=== PATIENT | female | born 1950 | race Caucasian/White ===

== ENCOUNTER 2019-10-14 11:07 | Outpatient (CLI) | payer MEDICARE, SELFPAY ==
[2019-10-14 11:35] LABS: Basophils Absolute Auto 0.02 K/mm3 (0.00-0.10); Basophils Percent Auto 0.4 % (0.0-1.0); Eosinophils Absolute Auto 0.28 K/mm3 (0.02-0.50); Eosinophils Percent Auto 5.1 % (1.0-6.0); Hematocrit 43.9 % (35.0-42.0); Hemoglobin 14.3 g/dL (11.7-13.8); Immature Granulocyte Absolute 0.01 K/mm3 (0.00-0.00); Immature Granulocyte Percent A 0.2 % (0.0-0.0); Lymphocytes Absolute Auto 2.18 K/mm3 (1.10-4.50); Lymphocytes Percent Auto 39.8 % (18.0-42.0); Mean Corpuscular HGB Conc 32.6 g/dL (32.0-36.0); Mean Corpuscular Hemoglobin 29.8 pg (27.0-31.0); Mean Corpuscular Volume 91.5 fL (78.0-102.0); Mean Platelet Volume 9.7 fl (9.2-11.8); Monocytes Absolute Auto 0.33 K/mm3 (0.10-0.90); Neutrophils Absolute Auto 2.7 K/mm3 (1.7-7.2); Neutrophils Percent Auto 48.5 % (50.0-70.0); Platelet Count Result 179 K/mm3 (150-420); Red Cell Distribution Width 13.5 % (11.6-14.4); White Blood Count 5.5 K/mm3 (4.8-10.8)
[2019-10-14 11:44] LABS: Hemoglobin A1C 5.7 % (<5.7)
[2019-10-14 12:23] LABS: Alanine Aminotransferase 11 U/L (14-59); Albumin Level 3.8 g/dL (3.4-5.0); Alkaline Phosphatase 52 U/L (46-116); Anion Gap 11.1 mmol/L (7-16); Aspartate Amino Transferase 10 U/L (15-37); Bilirubin,Total 0.3 mg/dL (0.00-1.00); Blood Urea Nitrogen 14 mg/dL (7-18); Calcium 8.7 mg/dL (8.5-10.1); Carbon Dioxide 31 mmol/L (21-32); Chloride 107 mmol/L (98-108); Cholesterol 206 mg/dL (0-200); Estimated Glomerular Filt Rate > 60; Free T4 Free Thyroxine 0.91 ng/dL (0.76-1.46); Glucose 104 mg/dL (70-99); HDL Direct 60 mg/dL (40-60); LDL Cholesterol Calculated 130 mg/dL (<130); Osmolality Calculated 300 mOsm/kg (285-295); Potassium 4.1 mmol/L (3.5-5.1); Sodium 145 mmol/L (136-145); Thyroid Stimulating Hormone 1.93 uIU/mL (0.36-3.74); Total Protein 6.6 g/dL (6.4-8.2); Triglycerides 79 mg/dL (0-150)
[2019-10-17 11:55] LABS: Vitamin D 25 Hydroxy 31 ng/mL (30-100)
== END 2019-10-14 11:08 | disposition home or self-care (01) ==
PROVIDERS: Visit Provider Family Medicine
DX: R53.83 Other fatigue (principal); I10 Essential (primary) hypertension; E11.9 Type 2 diabetes mellitus without complications; E78.2 Mixed hyperlipidemia; E55.9 Vitamin D deficiency, unspecified
CPT/HCPCS: 36415; 80053; 80061; 82306; 83036; 84439; 84443; 85025

== ENCOUNTER 2020-07-04 12:27 | Outpatient (CLI) | payer MEDICARE, SELFPAY ==
--- NOTE | ~2020-07-04 | DEXA_ITS ---
BMD(1) Young-Adult(2) Age-Matched(3) Region (g/cm2) T-score Z-score WHO Classification L1 1.069 -0.6 1.0 Normal L2 1.069 -1.2 0.4 Osteopenia L3 1.221 0.0 1.6 Normal L4 1.052 -1.3 0.3 Osteopenia L1-L4 1.100 -0.8 0.8 Normal Trend: L1-L4 Change vs Change vs Measured Age BMD(1) Baseline Previous Date (years) (g/cm2) (%) (%) 07/04/2020 [age] 1.100 baseline - 1 - Statistically 68% of repeat scans fall within 1SD (+- 0.010 g/cm2 for AP Spine L1-L4) 2 - [place] (Combined NHANES (ages 20-30) / [employer] (ages 20-40)) AP Spine Reference Population (v112) 3 - Matched for Age, Weight (females 25-100 kg), Ethnic 11 - World Health Organization - Definition of Osteoporosis and Osteopenia for Women: Normal = T-score at or above -1.0 SD; Osteopenia = T-score between -1.0 and -2.5 SD; Osteoporosis = T-score at or below -2.5 SD; (WHO definitions only apply when a young healthy Women reference database is used to determine T-scores.) Printed: 07/04/2020 1:07:17 PM (13.60)76:3.00:50.00:12.0 0.00:10.14 0.60x1.05 21.1:%Fat=40.5% 0.00:0.00 0.00:0.00 Filename: [id number].[email or web address] Scan Mode: Standard;OneScan 37.0 [employer] Systems [id number] BMD(1) Young-Adult(2,7) Age-Matched(3) Region (g/cm2) T-score Z-score WHO Classification Neck Left 0.770 -1.9 -0.3 Osteopenia Right 0.702 -2.4 -0.8 Osteopenia Mean 0.736 -2.2 -0.6 Osteopenia Difference 0.068 0.5 0.5 - Total Left 0.889 -0.9 0.4 Normal Right 0.798 -1.7 -0.3 Osteopenia Mean 0.844 -1.3 0.0 Osteopenia Difference 0.091 0.7 0.7 - Hip [place] Length Comparison (mm) (Right = 96.2 mm) (Mean = 102.1 mm) (Left = 97.3 mm) Trend: Total Mean Change vs Change vs Measured Age BMD(1) Baseline Previous Date (years) (g/cm2) (%) (%) 07/04/2020 70.3 0.844 baseline - 1 - Statistically 68% of repeat scans fall within 1SD (+- 0.010 g/cm2 for DualFemur Total) 2 - [place] (Combined NHANES (ages 20-30) / [employer] (ages 20-40)) Femur Reference Population (v112) 3 - Matched for Age, Weight (females 25-100 kg), Ethnic 7 - DualFemur Total T-score difference is 0.7. Asymmetry is Mild. 11 - World Health Organization - Definition of Osteoporosis and Osteopenia for Women: Normal = T-score at or above -1.0 SD; Osteopenia = T-score between -1.0 and -2.5 SD; Osteoporosis = T-score at or below -2.5 SD; (WHO definitions only apply when a young healthy Women reference database is used to determine T-scores.) Printed: 07/04/2020 1:07:17 PM (13.60); Filename: 5gfggqafq.dfx; Right Femur; 17.3:%Fat=37.0%; Neck Angle (deg)= 54; Scan Mode: Standard 37.0 uGy; Left Femur; 16.7:%Fat=42.3%; Neck Angle (deg)= 68; Scan Mode: Standard 37.0 uGy [email or web address] [id number] Dear Geneva Damian, Your patient Romana Bush completed a BMD test on 07/04/2020 using the [email or web address] DXA System (analysis version: 13.60) manufactured by APR. The following summarizes the results of our evaluation. PATIENT BIOGRAPHICAL: Name: Romana Bush Date: 1950 Height: 61.0 in. Gender: Female
--- NOTE | ~2020-07-04 | MM_ITS ---
EXAMINATION: MM screening mary BI w carlyle HISTORY: Screening TECHNIQUE: Craniocaudal and mediolateral oblique 3-D tomosynthesis images were obtained and synthetic 2-D images were generated. CAD analysis was submitted and interpreted. COMPARISON: No prior mammogram is available for comparison at this institution. BREAST PARENCHYMAL COMPOSITION: There are scattered areas of fibroglandular density. FINDINGS: There is no evidence of suspicious mass, calcification, or architectural distortion to sugg est malignancy in either breast. There has been no suspicious interval change. IMPRESSION: 1. No mammographic evidence of malignancy. 2. Recommend routine screening mammography in one year. BI-RADS Category 1: Negative Reviewed, dictated and finalized at location A.
== END 2020-07-04 12:28 | disposition home or self-care (01) ==
PROVIDERS: PCP Family Medicine; Visit Provider Family Medicine
DX: Z12.31 Encounter for screening mammogram for malignant neoplasm of breast (principal); Z78.0 Asymptomatic menopausal state
CPT/HCPCS: 77063; 77067; 77080

== ENCOUNTER 2020-12-13 08:14 | Outpatient (CLI) | payer MEDICARE, SELFPAY ==
[2020-12-13 08:47] LABS: Hemoglobin A1C 5.5 % (<5.7)
[2020-12-13 08:50] LABS: Creatinine Urine 66.58 mg/dL (40-278); MALB Creatinine Ratio 19.5 mg/g (0-30); Microalbumin Urine Random < 13.0 mg/L
[2020-12-13 09:45] LABS: Alanine Aminotransferase 15 U/L (14-59); Albumin Level 3.8 g/dL (3.4-5.0); Alkaline Phosphatase 58 U/L (46-116); Anion Gap 5 mmol/L (8-16); Aspartate Amino Transferase < 10 U/L (15-37); Bilirubin,Total 0.4 mg/dL (0.00-1.00); Blood Urea Nitrogen 14 mg/dL (7-18); Calcium 9.1 mg/dL (8.5-10.1); Carbon Dioxide 34 mmol/L (21-32); Chloride 105 mmol/L (98-108); Cholesterol 212 mg/dL (0-200); Estimated Glomerular Filt Rate > 60; Glucose 93 mg/dL (70-99); HDL Direct 59 mg/dL (40-60); LDL Cholesterol Calculated 136 mg/dL (<130); Osmolality Calculated 298 mOsm/kg (285-295); Potassium 4.3 mmol/L (3.5-5.1); Sodium 144 mmol/L (136-145); Total Protein 6.5 g/dL (6.4-8.2); Triglycerides 85 mg/dL (0-150); Vitamin B12 374 pg/mL (193-986)
[2020-12-16 10:05] LABS: Vitamin D 25 Hydroxy 32 ng/mL (30-100)
== END 2020-12-13 08:15 | disposition home or self-care (01) ==
LOC: CHSLAB 08:18
PROVIDERS: PCP Family Medicine; Visit Provider Family Medicine
DX: E78.2 Mixed hyperlipidemia (principal); Z00.00 Encounter for general adult medical examination without abnormal findings; E03.9 Hypothyroidism, unspecified; E11.9 Type 2 diabetes mellitus without complications; E55.9 Vitamin D deficiency, unspecified; E53.8 Deficiency of other specified B group vitamins
CPT/HCPCS: 36415; 80053; 80061; 82043; 82306; 82607; 83036; 84443

== ENCOUNTER 2021-03-15 08:18 | Outpatient (CLI) | payer MEDICARE, SELFPAY ==
[2021-03-15 08:33] LABS: Hematocrit 39.8 % (35.0-42.0); Hemoglobin 13.1 g/dL (11.7-13.8); Mean Corpuscular HGB Conc 32.9 g/dL (32.0-36.0); Mean Corpuscular Volume 91.3 fL (78.0-102.0); Mean Platelet Volume 9.7 fl (9.2-11.8); Platelet Count Result 170 K/mm3 (150-420); Red Blood Count 4.36 M/mm3 (4.20-5.40); Red Cell Distribution Width 13.9 % (11.6-14.4); White Blood Count 5.3 K/mm3 (4.8-10.8)
[2021-03-15 08:44] LABS: Hemoglobin A1C 5.6 % (<5.7)
[2021-03-15 09:33] LABS: Alanine Aminotransferase 14 U/L (14-59); Albumin Level 3.6 g/dL (3.4-5.0); Alkaline Phosphatase 55 U/L (46-116); Anion Gap 8 mmol/L (8-16); Aspartate Amino Transferase < 10 U/L (15-37); Bilirubin,Total 0.3 mg/dL (0.00-1.00); Blood Urea Nitrogen 15 mg/dL (7-18); Calcium 8.7 mg/dL (8.5-10.1); Carbon Dioxide 29 mmol/L (21-32); Chloride 108 mmol/L (98-108); Cholesterol 198 mg/dL (0-200); Estimated Glomerular Filt Rate > 60; Glucose 106 mg/dL (70-99); HDL Direct 62 mg/dL (40-60); LDL Cholesterol Calculated 125 mg/dL (<130); Osmolality Calculated 300 mOsm/kg (285-295); Sodium 145 mmol/L (136-145); Total Protein 5.9 g/dL (6.4-8.2); Triglycerides 53 mg/dL (0-150); Vitamin B12 422 pg/mL (193-986)
[2021-03-15 09:35] LABS: Thyroid Stimulating Hormone Reflex 1.51 u/IU/mL (0.36-3.74)
[2021-03-20 12:36] LABS: Vitamin D 25 Hydroxy 58 ng/mL (30-100)
== END 2021-03-15 08:19 | disposition home or self-care (01) ==
LOC: CHSLAB 08:21
PROVIDERS: PCP Family Medicine; Visit Provider Family Medicine
DX: R53.83 Other fatigue (principal); E78.2 Mixed hyperlipidemia; E11.9 Type 2 diabetes mellitus without complications; Z00.00 Encounter for general adult medical examination without abnormal findings; E53.8 Deficiency of other specified B group vitamins; E55.9 Vitamin D deficiency, unspecified
CPT/HCPCS: 36415; 80053; 80061; 82306; 82607; 83036; 84443; 85027

== ENCOUNTER 2021-07-30 07:55 | Outpatient (CLI) | payer MEDICARE, SELFPAY ==
[2021-07-30 08:30] LABS: Hemoglobin 13.6 g/dL (11.7-13.8); Mean Corpuscular HGB Conc 32.4 g/dL (32.0-36.0); Mean Corpuscular Volume 92.7 fL (78.0-102.0); Platelet Count Result 179 K/mm3 (150-420); Red Blood Count 4.53 M/mm3 (4.20-5.40); Red Cell Distribution Width 13.6 % (11.6-14.4); White Blood Count 5.7 K/mm3 (4.8-10.8)
[2021-07-30 08:33] LABS: Hemoglobin A1C 5.7 % (<5.7)
[2021-07-30 09:20] LABS: Alanine Aminotransferase 21 U/L (14-59); Albumin Level 3.5 g/dL (3.4-5.0); Alkaline Phosphatase 55 U/L (46-116); Anion Gap 9 mmol/L (8-16); Aspartate Amino Transferase 12 U/L (15-37); Bilirubin,Total 0.3 mg/dL (0.00-1.00); Blood Urea Nitrogen 16 mg/dL (7-18); Calcium 8.5 mg/dL (8.5-10.1); Carbon Dioxide 31 mmol/L (21-32); Chloride 105 mmol/L (98-108); Cholesterol 191 mg/dL (0-200); Estimated Glomerular Filt Rate > 60; Glucose 102 mg/dL (70-99); HDL Direct 56 mg/dL (40-60); LDL Cholesterol Calculated 123 mg/dL (<130); Osmolality Calculated 301 mOsm/kg (285-295); Potassium 4.1 mmol/L (3.5-5.1); Sodium 145 mmol/L (136-145); Triglycerides 61 mg/dL (0-150)
[2021-07-30 09:21] LABS: Thyroid Stimulating Hormone Reflex 2.38 u/IU/mL (0.36-3.74)
[2021-08-02 11:44] LABS: Vitamin D 25 Hydroxy 50 ng/mL (30-100)
== END 2021-07-30 07:56 | disposition home or self-care (01) ==
LOC: CHSLAB 07:57
PROVIDERS: PCP Family Medicine; Visit Provider Family Medicine
DX: E11.9 Type 2 diabetes mellitus without complications (principal); Z00.00 Encounter for general adult medical examination without abnormal findings; E55.9 Vitamin D deficiency, unspecified; E78.2 Mixed hyperlipidemia; I10 Essential (primary) hypertension; R53.83 Other fatigue
CPT/HCPCS: 36415; 80053; 80061; 82306; 83036; 84443; 85027

== ENCOUNTER 2021-09-08 12:19 | Outpatient (CLI) | payer MEDICARE, SELFPAY ==
--- NOTE | ~2021-09-08 | MM_ITS ---
EXAMINATION: MM screening [facility] BI w carlyle HISTORY: Screening mammogram TECHNIQUE: Craniocaudal and mediolateral oblique 3-D tomosynthesis images were obtained and synthetic 2-D images were generated. CAD analysis was submitted and interpreted. COMPARISON: 07/04/2020, 02/20/2005 BREAST PARENCHYMAL COMPOSITION: There are scattered areas of fibroglandular density. FINDINGS: Scattered benign-appearing calcifications are present. There is no evidence of suspicious m ass, calcification, or architectural distortion to suggest malignancy in either breast. There has bee n no suspicious interval change. IMPRESSION: 1. No mammographic evidence of malignancy. 2. Recommend routine screening mammography in one year. BI-RADS Category 2: Benign finding(s). Reviewed, dictated and finalized at location A. DENT CARE ASSOCIATE
== END 2021-09-08 12:20 | disposition home or self-care (01) ==
LOC: CHSIMG 12:22
PROVIDERS: PCP Family Medicine; Visit Provider Family Medicine
DX: Z12.31 Encounter for screening mammogram for malignant neoplasm of breast (principal)
CPT/HCPCS: 77063; 77067

== ENCOUNTER 2022-01-29 09:02 | Outpatient (CLI) | payer MEDICARE, SELFPAY ==
[2022-01-29 09:14] LABS: Hematocrit 44.1 % (35.0-42.0); Hemoglobin 14.3 g/dL (11.7-13.8); Mean Corpuscular HGB Conc 32.4 g/dL (32.0-36.0); Mean Corpuscular Volume 92.5 fL (78.0-102.0); Mean Platelet Volume 9.9 fl (9.2-11.8); Platelet Count Result 198 K/mm3 (150-420); Red Blood Count 4.77 M/mm3 (4.20-5.40); White Blood Count 5.3 K/mm3 (4.8-10.8)
[2022-01-29 09:32] LABS: Creatinine Urine 77.65 mg/dL (40-278); MALB Creatinine Ratio 16.7 mg/g (0-30); Microalbumin Urine Random < 13.0 mg/L
[2022-01-29 09:33] LABS: Hemoglobin A1C 5.3 % (<5.7)
[2022-01-29 10:17] LABS: Alanine Aminotransferase 13 U/L (14-59); Albumin Level 3.6 g/dL (3.4-5.0); Alkaline Phosphatase 60 U/L (46-116); Anion Gap 8 mmol/L (8-16); Aspartate Amino Transferase < 10 U/L (15-37); Bilirubin,Total 0.2 mg/dL (0.00-1.00); Blood Urea Nitrogen 18 mg/dL (7-18); Calcium 8.7 mg/dL (8.5-10.1); Carbon Dioxide 27 mmol/L (21-32); Chloride 107 mmol/L (98-108); Cholesterol 191 mg/dL (0-200); Estimated Glomerular Filt Rate > 60; Glucose 110 mg/dL (70-99); HDL Direct 59 mg/dL (40-60); LDL Cholesterol Calculated 117 mg/dL (<130); Osmolality Calculated 296 mOsm/kg (285-295); Potassium 4.5 mmol/L (3.5-5.1); Sodium 142 mmol/L (136-145); Total Protein 6.3 g/dL (6.4-8.2); Triglycerides 75 mg/dL (0-150); Vitamin B12 1305 pg/mL (193-986)
[2022-01-29 10:20] LABS: Thyroid Stimulating Hormone Reflex 2.02 u/IU/mL (0.36-3.74)
[2022-02-03 13:50] LABS: Vitamin D 25 Hydroxy 43 ng/mL (30-100)
== END 2022-01-29 09:03 | disposition home or self-care (01) ==
PROVIDERS: PCP Family Medicine; Visit Provider Family Medicine
DX: R53.83 Other fatigue (principal); E11.9 Type 2 diabetes mellitus without complications; E55.9 Vitamin D deficiency, unspecified; Z98.84 Bariatric surgery status; E78.2 Mixed hyperlipidemia; E53.8 Deficiency of other specified B group vitamins
CPT/HCPCS: 36415; 80053; 80061; 82043; 82306; 82607; 83036; 84443; 85027

== ENCOUNTER 2022-07-31 08:05 | Outpatient (CLI) | payer MEDICARE, SELFPAY ==
[2022-07-31 08:27] LABS: Hematocrit 43.6 % (35.0-42.0); Hemoglobin 13.6 g/dL (11.7-13.8); Mean Corpuscular HGB Conc 31.2 g/dL (32.0-36.0); Mean Corpuscular Hemoglobin 29.6 pg (27.0-31.0); Mean Platelet Volume 9.6 fl (9.2-11.8); Platelet Count Result 173 K/mm3 (150-420); Red Blood Count 4.59 M/mm3 (4.20-5.40); Red Cell Distribution Width 13.8 % (11.6-14.4); White Blood Count 5.2 K/mm3 (4.8-10.8)
[2022-07-31 09:05] LABS: Hemoglobin A1C 5.8 % (<5.7)
[2022-07-31 09:14] LABS: Alanine Aminotransferase 15 U/L (14-59); Albumin Level 3.5 g/dL (3.4-5.0); Alkaline Phosphatase 56 U/L (46-116); Anion Gap 6 mmol/L (8-16); Aspartate Amino Transferase 13 U/L (15-37); Bilirubin,Total 0.3 mg/dL (0.00-1.00); Blood Urea Nitrogen 16 mg/dL (7-18); Calcium 8.4 mg/dL (8.5-10.1); Carbon Dioxide 30 mmol/L (21-32); Chloride 110 mmol/L (98-108); Cholesterol 189 mg/dL (0-200); Estimated Glomerular Filt Rate > 60; Glucose 111 mg/dL (70-99); HDL Direct 59 mg/dL (40-60); LDL Cholesterol Calculated 119 mg/dL (<130); Osmolality Calculated 304 mOsm/kg (285-295); Potassium 4.3 mmol/L (3.5-5.1); Sodium 146 mmol/L (136-145); Triglycerides 54 mg/dL (0-150)
[2022-07-31 09:15] LABS: Thyroid Stimulating Hormone Reflex 1.79 u/IU/mL (0.36-3.74)
[2022-08-05 12:23] LABS: Vitamin D 25 Hydroxy 46 ng/mL (30-100)
== END 2022-07-31 08:06 | disposition home or self-care (01) ==
LOC: CHSLAB 08:07
PROVIDERS: PCP Family Medicine; Visit Provider Family Medicine
DX: E55.9 Vitamin D deficiency, unspecified (principal); E78.2 Mixed hyperlipidemia; I10 Essential (primary) hypertension; E11.9 Type 2 diabetes mellitus without complications; R53.83 Other fatigue
CPT/HCPCS: 36415; 80053; 80061; 82306; 83036; 84443; 85027

== ENCOUNTER 2023-01-06 10:00 | Outpatient (CLI) | payer MEDICARE, SELFPAY ==
--- NOTE | ~2023-01-06 | DEXA_ITS ---
Bone Density Report Name: YUNIEL VALVERDE Age: 72 Sex: Female Ethnicity: White Date of : 1950 Indication: postmenopausal; screening for osteoporosis; parental hip fracture; height loss; hysterectomy; Referring Provider: Geneva Damian Study: Bone densitometry was performed. Exam Date: January 06, 2023 Accession number: [id number] Bone Density: Region BMD T-score Z-score Classification AP Spine(L1, L2, L3) 0.928 -0.8 1.3 Normal Femoral Neck (Left) 0.570 -2.5 -0.6 Osteoporosis Total Hip (Left) 0.704 -1.9 -0.3 Osteopenia Femoral Neck (Right) 0.562 -2.6 -0.7 Osteoporosis Total Hip (Right) 0.685 -2.1 -0.5 Osteopenia Femoral Neck Mean 0.566 -2.5 -0.6 Osteoporosis Total Hip Mean 0.695 -2.0 -0.4 Osteopenia World Health Organization criteria for BMD impression classify patients as: Normal (T-score at or above -1.0), Osteopenia (T-score between -1.0 and -2.5), or Osteoporosis (T-score at or below -2.5). 10-year Fracture Risk: FRAX not reported because: Some T-score for Spine Total or Hip Total or Femoral Neck at or below -2.5 Clinical Information Provided by Patient: Parent has had a hip fracture Has used the following medications: Vitamin D, Calcium Has the following medical conditions: Hysterectomy Patient maximum height was 62 Menopause Age: 25 No regular weight bearing exercise Drinks caffeinated beverages Onset of menses at age 15 Number of children 3 Impression: The patient has osteoporosis, based on the Right Femoral Neck T-score. The patient has risk factors, including: parental hip fracture. Discussion: INCREASED RISK OF FRACTURE. BONE DENSITY IS UNDESIRABLY LOW AT ONE OR MORE SKELETAL SITES, CONSISTENT WITH POSTMENOPAUSAL OSTEOPOROSIS. This patient's lowest T-score meets the World Health Organization's (WHO) criteria for osteoporosis at one or more sites (T-score -2.5 or below). In untreated patients, the risk of osteoporotic fracture increases approximately two-fold for each 1.0 SD decrease in T-score. Low bone density is not the only risk factor for fracture; also consider factors such as patient's age, frailty or poor health, risk of falling, risk of injury, previous osteoporotic fracture, family history of osteoporosis, cigarette smoking, low body weight, etc. Not everyone with low bone mineral density has osteoporosis; osteomalacia and other metabolic bone disorders should also be considered. Patients who have osteoporosis should be evaluated for specific diseases and conditions (secondary causes) that may cause or contribute to bone loss. The [place] [employer] Clinical Endocrinologists (AACE) and National Osteoporosis Foundation (NOF) recommend pharmacologic intervention for all postmenopausal women whose T-score is in this range. The patient should follow a healthful
--- NOTE | ~2023-01-06 | MM_ITS ---
EXAMINATION: MM screening mary BI w carlyle HISTORY: Screening mammogram TECHNIQUE: Craniocaudal and mediolateral oblique 3-D tomosynthesis images were obtained and synthetic 2-D images were generated. CAD analysis was submitted and interpreted. COMPARISON: 09/08/2021, 07/04/2020 bilateral screening mammogram examinations BREAST PARENCHYMAL COMPOSITION: There are scattered areas of fibroglandular density. FINDINGS: There is no evidence of suspicious mass, calcification, or architectural distortion to sugg est malignancy in either breast. There has been no suspicious interval change. IMPRESSION: 1. No mammographic evidence of malignancy. 2. Recommend routine screening mammography in one year. BI-RADS Category 1: Negative Reviewed, dictated and finalized at location A.
== END 2023-01-06 10:01 | disposition home or self-care (01) ==
LOC: CHSIMG 10:01
PROVIDERS: PCP Family Medicine; Visit Provider Family Medicine
DX: Z12.31 Encounter for screening mammogram for malignant neoplasm of breast (principal); Z78.0 Asymptomatic menopausal state; M85.89 Other specified disorders of bone density and structure, multiple sites; M81.0 Age-related osteoporosis without current pathological fracture
CPT/HCPCS: 77063; 77067; 77080

== ENCOUNTER 2023-02-02 08:37 | Outpatient (CLI) | payer MEDICARE, SELFPAY ==
[2023-02-02 09:01] LABS: Basophils Absolute Auto 0.02 K/mm3 (0.00-0.10); Basophils Percent Auto 0.4 % (0.0-1.0); Eosinophils Absolute Auto 0.42 K/mm3 (0.02-0.50); Hematocrit 43.8 % (35.0-42.0); Immature Granulocyte Absolute 0.01 K/mm3 (0.00-0.00); Immature Granulocyte Percent A 0.2 % (0.0-0.0); Lymphocytes Absolute Auto 1.57 K/mm3 (1.10-4.50); Lymphocytes Percent Auto 33.8 % (18.0-42.0); Mean Platelet Volume 9.6 fl (9.2-11.8); Monocytes Percent Auto 6.5 % (2.0-11.0); Neutrophils Absolute Auto 2.3 K/mm3 (1.7-7.2); Neutrophils Percent Auto 50.1 % (50.0-70.0); Platelet Count Result 190 K/mm3 (150-420); Red Blood Count 4.66 M/mm3 (4.20-5.40); Red Cell Distribution Width 13.8 % (11.6-14.4); White Blood Count 4.7 K/mm3 (4.8-10.8)
[2023-02-02 09:11] LABS: Creatinine Urine 101.32 mg/dL (40-278); MALB Creatinine Ratio 17.7 mg/g (0-30)
[2023-02-02 09:21] LABS: Hemoglobin A1C 5.8 % (<5.7)
[2023-02-02 09:46] LABS: Alanine Aminotransferase 13 U/L (14-59); Albumin Level 3.7 g/dL (3.4-5.0); Alkaline Phosphatase 56 U/L (46-116); Anion Gap 6 mmol/L (8-16); Aspartate Amino Transferase 11 U/L (15-37); Bilirubin,Total 0.3 mg/dL (0.00-1.00); Blood Urea Nitrogen 18 mg/dL (7-18); Calcium 8.7 mg/dL (8.5-10.1); Carbon Dioxide 33 mmol/L (21-32); Chloride 108 mmol/L (98-108); Cholesterol 203 mg/dL (0-200); Estimated Glomerular Filt Rate > 60; Glucose 116 mg/dL (70-99); HDL Direct 60 mg/dL (40-60); LDL Cholesterol Calculated 130 mg/dL (<130); Lipase 37 U/L (16-77); Osmolality Calculated 306 mOsm/kg (285-295); Potassium 4.4 mmol/L (3.5-5.1); Sodium 147 mmol/L (136-145); Total Protein 6.5 g/dL (6.4-8.2); Triglycerides 67 mg/dL (0-150)
[2023-02-02 09:47] LABS: Thyroid Stimulating Hormone Reflex 1.64 u/IU/mL (0.36-3.74)
[2023-02-04 17:04] LABS: Vitamin D 25 Hydroxy 45 ng/mL (30-100)
== END 2023-02-02 08:38 | disposition home or self-care (01) ==
LOC: CHSLAB 08:40
PROVIDERS: PCP Family Medicine; Visit Provider Family Medicine
DX: E11.9 Type 2 diabetes mellitus without complications (principal); E78.2 Mixed hyperlipidemia; I10 Essential (primary) hypertension; R53.83 Other fatigue; E55.9 Vitamin D deficiency, unspecified; R10.13 Epigastric pain
CPT/HCPCS: 36415; 80053; 80061; 82043; 82306; 83036; 83690; 84443; 85025

== ENCOUNTER 2023-03-31 07:13 | Outpatient (CLI) | payer MEDICARE, SELFPAY ==
[2023-03-31 08:12] LABS: Alanine Aminotransferase 13 U/L (14-59); Albumin Level 3.4 g/dL (3.4-5.0); Alkaline Phosphatase 49 U/L (46-116); Anion Gap 8 mmol/L (8-16); Aspartate Amino Transferase < 10 U/L (15-37); Bilirubin,Total 0.3 mg/dL (0.00-1.00); Blood Urea Nitrogen 17 mg/dL (7-18); Calcium 8.6 mg/dL (8.5-10.1); Carbon Dioxide 29 mmol/L (21-32); Chloride 109 mmol/L (98-108); Estimated Glomerular Filt Rate > 60; Free T4 Free Thyroxine 1.01 ng/dL (0.76-1.46); Glucose 119 mg/dL (70-99); Osmolality Calculated 304 mOsm/kg (285-295); Phosphorus 5.2 mg/dL (2.6-4.7); Potassium 3.9 mmol/L (3.5-5.1); Sodium 146 mmol/L (136-145); Thyroid Stimulating Hormone 1.72 uIU/mL (0.36-3.74)
[2023-04-03 21:15] LABS: Albumin 3.7 g/dL (3.8-4.8); Alpha 1 Globulin 0.3 g/dL (0.2-0.3); Alpha 2 Globulin 0.7 g/dL (0.5-0.9); Beta 1 Globulin 0.4 g/dL (0.4-0.6); Gamma Globulin 0.7 g/dL (0.8-1.7); Interpretation Consistent with
[2023-04-06 18:53] LABS: Parathyroid Intact 60 pg/mL (14-64)
[2023-04-07 19:56] LABS: Creatinine, Random Urine 114 mg/dL (20-275); Total Protein/Creatinine Ratio 114 mg/g creat (24-184)
[2023-04-08 20:00] LABS: Immunoglobulin A 130 mg/dL (70-320); TTG IGA AB <1.0 U/mL (<15.0)
== END 2023-03-31 07:14 | disposition home or self-care (01) ==
LOC: CHSLAB 07:14
PROVIDERS: PCP Family Medicine; Visit Provider Internal Medicine
DX: M81.0 Age-related osteoporosis without current pathological fracture (principal); Z90.710 Acquired absence of both cervix and uterus; Z90.49 Acquired absence of other specified parts of digestive tract; R73.03 Prediabetes; R53.83 Other fatigue
CPT/HCPCS: 36415; 80053; 82570; 82784; 83516; 83735; 83970; 84100; 84155; 84156; 84165; 84166; 84439; 84443

== ENCOUNTER 2023-04-02 07:16 | Outpatient (CLI) | payer MEDICARE, SELFPAY ==
[2023-04-02 07:44] LABS: Creatinine Urine 31.08 mg/dL (40-278)
[2023-04-02 08:04] LABS: Creatinine 24 Hour Urine 0.68 g/24 hr (0.60-1.80); Total Volume 24 Hour Urine 2200 ml
[2023-04-09 07:23] LABS: Total Volume 2200; Urine Calcium 6.5
== END 2023-04-02 07:17 | disposition home or self-care (01) ==
LOC: CHSLAB 07:18
PROVIDERS: PCP Family Medicine; Visit Provider Internal Medicine
DX: M81.0 Age-related osteoporosis without current pathological fracture (principal); Z90.710 Acquired absence of both cervix and uterus; Z90.49 Acquired absence of other specified parts of digestive tract
CPT/HCPCS: 81050; 82340; 82570

== ENCOUNTER 2023-05-25 11:38 | Outpatient (CLI) | payer MEDICARE, SELFPAY ==
[2023-05-25 11:57] LABS: Basophils Percent Auto 0.3 % (0.2-1.2); Eosinophils Absolute Auto 0.4 K/mm3 (0-0.3); Eosinophils Percent Auto 6.1 % (0-4.4); Hematocrit 43.7 % (37.0-47.0); Hemoglobin 13.9 g/dL (12.0-15.0); Immature Granulocyte Absolute 0.01 K/mm3 (0.00-0.031); Immature Granulocyte Percent A 0.2 % (0-0.5); Lymphocytes Absolute Auto 2.07 K/mm3 (0.9-3.2); Lymphocytes Percent Auto 35.9 % (18.3-44.2); Mean Corpuscular HGB Conc 31.8 g/dl (32-36); Mean Corpuscular Hemoglobin 29.4 pg (26-34); Mean Corpuscular Volume 92.4 fl (80-100); Mean Platelet Volume 9.9 fl (7.4-10.4); Monocytes Absolute Auto 0.5 K/mm3 (0.1-0.6); Monocytes Percent Auto 7.8 % (2.6-8.5); Neutrophils Absolute Auto 2.9 K/mm3 (1.3-6.7); Neutrophils Percent Auto 49.7 % (45.5-73.1); Platelet Count Result 170 k/mm3 (150-375); Red Blood Count 4.73 M/mm3 (4.2-5.4); Red Cell Distribution Width 13.8 % (11.5-14.5); White Blood Count 5.8 K/mm3 (4.5-10.0)
[2023-05-25 15:35] LABS: Alanine Aminotransferase 14 U/L (6-35); Albumin Level 4.1 g/dL (3.5-5.1); Alkaline Phosphatase 48 U/L (38-126); Anion Gap 1 mmol/L (8-16); Aspartate Amino Transferase 19 U/L (14-36); Bilirubin,Total 0.4 mg/dL (0.2-1.3); Blood Urea Nitrogen 13 mg/dL (7-17); Calcium 9.2 mg/dL (8.4-10.2); Carbon Dioxide 33 mmol/L (22-30); Chloride 101 mmol/L (98-107); Estimated Glomerular Filt Rate > 60; Glucose 95 mg/dL (65-110); Potassium 4.1 mmol/L (3.4-5.0); Sodium 135 mmol/L (137-145)
[2023-05-25 15:52] LABS: Immunoglobulin A 135 mg/dL (70-400); Immunoglobulin G 700 mg/dL (700-1600); Immunoglobulin M 125 mg/dL (40-230)
[2023-05-27 15:32] LABS: Albumin 4.1 g/dL (3.8-4.8); Alpha 1 Globulin 0.3 g/dL (0.2-0.3); Alpha 2 Globulin 0.8 g/dL (0.5-0.9); Beta 1 Globulin 0.4 g/dL (0.4-0.6); Gamma Globulin 0.7 g/dL (0.8-1.7); Interpretation Consistent with; Protein, Total 6.5 g/dL (6.1-8.1)
[2023-05-27 19:56] LABS: Kappa\\Lambda Light Chains 1.27 (0.26-1.65); Lambda Light Chain 15.4 mg/L (5.7-26.3)
== END 2023-05-25 11:39 | disposition home or self-care (01) ==
LOC: ANHLAB 11:41
PROVIDERS: PCP Family Medicine; Visit Provider Internal Medicine Hematology & Oncology
DX: R80.9 Proteinuria, unspecified (principal)
CPT/HCPCS: 36415; 80053; 82784; 83883; 84155; 84165; 85025

== ENCOUNTER 2023-07-31 10:30 | Outpatient (CLI) | payer MEDICARE, SELFPAY ==
[2023-07-31 10:44] LABS: Hematocrit 40.9 % (35.0-42.0); Hemoglobin 12.8 g/dL (11.7-13.8); Mean Corpuscular HGB Conc 31.3 g/dL (32.0-36.0); Mean Corpuscular Hemoglobin 29.4 pg (27.0-31.0); Mean Platelet Volume 9.7 fl (9.2-11.8); Platelet Count Result 193 K/mm3 (150-420); Red Blood Count 4.35 M/mm3 (4.20-5.40); White Blood Count 5.3 K/mm3 (4.8-10.8)
[2023-07-31 10:57] LABS: Hemoglobin A1C 5.6 % (<5.7)
[2023-07-31 11:16] LABS: Thyroid Stimulating Hormone Reflex 1.35 u/IU/mL (0.36-3.74)
[2023-07-31 11:39] LABS: Alanine Aminotransferase 13 U/L (14-59); Albumin Level 3.5 g/dL (3.4-5.0); Alkaline Phosphatase 61 U/L (46-116); Anion Gap 5 mmol/L (8-16); Aspartate Amino Transferase < 10 U/L (15-37); Bilirubin,Total 0.5 mg/dL (0.00-1.00); Blood Urea Nitrogen 16 mg/dL (7-18); Calcium 8.7 mg/dL (8.5-10.1); Carbon Dioxide 32 mmol/L (21-32); Chloride 110 mmol/L (98-108); Cholesterol 196 mg/dL (0-200); Estimated Glomerular Filt Rate > 60; Glucose 110 mg/dL (70-99); HDL Direct 69 mg/dL (40-60); LDL Cholesterol Calculated 116 mg/dL (<130); Osmolality Calculated 306 mOsm/kg (285-295); Potassium 4.3 mmol/L (3.5-5.1); Sodium 147 mmol/L (136-145); Total Protein 6.3 g/dL (6.4-8.2); Triglycerides 57 mg/dL (0-150); Vitamin B12 1015 pg/mL (193-986)
[2023-08-03 12:18] LABS: Vitamin D 25 Hydroxy 38 ng/mL (30-100)
== END 2023-07-31 10:31 | disposition home or self-care (01) ==
LOC: CHSLAB 10:32
PROVIDERS: PCP Family Medicine; Visit Provider Family Medicine
DX: E55.9 Vitamin D deficiency, unspecified (principal); R53.83 Other fatigue; E53.8 Deficiency of other specified B group vitamins; E78.2 Mixed hyperlipidemia; E11.9 Type 2 diabetes mellitus without complications
CPT/HCPCS: 36415; 80053; 80061; 82306; 82607; 83036; 84443; 85027

== ENCOUNTER 2024-02-03 08:23 | Outpatient (CLI) | payer MEDICARE, SELFPAY ==
[2024-02-03 09:22] LABS: Creatinine Urine 60.62 mg/dL (40-278); MALB Creatinine Ratio 21.4 mg/g (0-30); Microalbumin Urine Random < 13.0 mg/L
[2024-02-03 10:10] LABS: Alanine Aminotransferase 16 U/L (14-59); Albumin Level 3.7 g/dL (3.4-5.0); Alkaline Phosphatase 42 U/L (46-116); Anion Gap 5 mmol/L (4-12); Aspartate Amino Transferase < 10 U/L (15-37); Bilirubin,Total 0.4 mg/dL (0.00-1.00); Blood Urea Nitrogen 21 mg/dL (7-18); Calcium 8.7 mg/dL (8.5-10.1); Carbon Dioxide 33 mmol/L (21-32); Chloride 107 mmol/L (98-108); Cholesterol 208 mg/dL (0-200); Estimated Glomerular Filt Rate > 60; Glucose 124 mg/dL (70-99); HDL Direct 68 mg/dL (40-60); LDL Cholesterol Calculated 129 mg/dL (<130); Osmolality Calculated 304 mOsm/kg (285-295); Potassium 4.5 mmol/L (3.5-5.1); Sodium 145 mmol/L (136-145); Total Protein 6.5 g/dL (6.4-8.2); Triglycerides 56 mg/dL (0-150)
[2024-02-03 10:45] LABS: Hemoglobin A1C 5.6 % (<5.7)
[2024-02-03 11:27] LABS: Thyroid Stimulating Hormone Reflex 1.68 u/IU/mL (0.36-3.74)
== END 2024-02-03 08:24 | disposition home or self-care (01) ==
LOC: CHSLAB 08:24
PROVIDERS: PCP Family Medicine; Visit Provider Family Medicine
DX: E78.2 Mixed hyperlipidemia (principal); R53.83 Other fatigue; E11.9 Type 2 diabetes mellitus without complications
CPT/HCPCS: 36415; 80053; 80061; 82043; 83036; 84443

== ENCOUNTER 2024-08-15 08:24 | Outpatient (CLI) | payer MEDICARE, SELFPAY ==
[2024-08-15 08:52] LABS: Hemoglobin A1C 5.8 % (<5.7)
[2024-08-15 09:29] LABS: Alanine Aminotransferase 15 U/L (14-59); Albumin Level 3.6 g/dL (3.4-5.0); Alkaline Phosphatase 54 U/L (46-116); Anion Gap 9 mmol/L (4-12); Aspartate Amino Transferase 11 U/L (15-37); Bilirubin,Total 0.3 mg/dL (0.00-1.00); Blood Urea Nitrogen 24 mg/dL (7-18); Carbon Dioxide 28 mmol/L (21-32); Chloride 105 mmol/L (98-108); Cholesterol 213 mg/dL (0-200); Estimated Glomerular Filt Rate > 60; Glucose 130 mg/dL (70-99); HDL Direct 55 mg/dL (40-60); LDL Cholesterol Calculated 140 mg/dL (<130); Osmolality Calculated 300 mOsm/kg (285-295); Potassium 4.6 mmol/L (3.5-5.1); Sodium 142 mmol/L (136-145); Total Protein 6.5 g/dL (6.4-8.2); Triglycerides 90 mg/dL (0-150)
== END 2024-08-15 08:25 | disposition home or self-care (01) ==
LOC: CHSLAB 08:25
PROVIDERS: PCP Family Medicine; Visit Provider Family Medicine
DX: E11.9 Type 2 diabetes mellitus without complications (principal); E78.2 Mixed hyperlipidemia
CPT/HCPCS: 36415; 80053; 80061; 83036

== ENCOUNTER 2025-02-12 08:34 | Outpatient (CLI) | payer MEDICARE, SELFPAY ==
[2025-02-12 08:53] LABS: Basophils Absolute Auto 0.02 K/mm3 (0.00-0.10); Basophils Percent Auto 0.3 % (0.0-1.0); Eosinophils Percent Auto 5.9 % (1.0-6.0); Hematocrit 42.4 % (35.0-42.0); Hemoglobin 13.1 g/dL (11.7-13.8); Immature Granulocyte Absolute 0.01 K/mm3 (0.00-0.00); Immature Granulocyte Percent A 0.1 % (0.0-0.0); Lymphocytes Percent Auto 22.2 % (18.0-42.0); Mean Corpuscular HGB Conc 30.9 g/dL (32-36); Mean Corpuscular Hemoglobin 28.9 pg (27.0-31.0); Mean Corpuscular Volume 93.6 fL (78.0-102.0); Mean Platelet Volume 10.1 fl (9.2-11.8); Monocytes Absolute Auto 0.46 K/mm3 (0.10-0.90); Monocytes Percent Auto 6.8 % (2.0-11.0); Neutrophils Absolute Auto 4.36 K/mm3 (1.70-7.20); Neutrophils Percent Auto 64.7 % (50.0-70.0); Platelet Count Result 208 K/mm3 (150-420); Red Blood Count 4.53 M/mm3 (4.20-5.40); Red Cell Distribution Width 14.4 % (11.6-14.4); White Blood Count 6.8 K/mm3 (4.8-10.8)
[2025-02-12 09:04] LABS: Hemoglobin A1C 5.9 % (<5.7)
--- OUTSIDE RECORDS SUMMARY | 2025-02-12 09:13 | XMS_ITS | Clinical Summary ---
Author Organization [facility] (Formerly [facility])[3] Renee Thapa Address [address] [place] [address] Care Team Providers Care Swat Team Member Name Role Phone Geneva Damian MD Primary Care Provider [phone] Allergies No known active allergies Medications pantoprazole (PROTONIX) 40 mg Tablet, Delayed Release (E.C.) Take 40 mg by mouth daily. Active sucralfate (CARAFATE) 1 gram tablet Take 1 Gram by mouth 4 times daily before meals and at bedtime. Active traZODone (DESYREL) 50 mg tablet Take 50 mg by mouth daily at bedtime. Active citalopram (CeleXA) 20 mg tablet Take 20 mg by mouth daily at bedtime. Active losartan (COZAAR) 50 mg tablet Take 50 mg by mouth daily. Active pravastatin (PRAVACHOL) 10 mg tablet Take 10 mg by mouth daily with supper. Active cyanocobalamin (VITAMIN B-12) 250 mcg Tablet Take 250 mcg by mouth daily. Active Calcium-Cholecal ciferol, D3, (OSCAL) 250 mg-3.125 mcg (125 unit) per tablet Take by mouth daily. Active aspirin (ECOTRIN EC) 81 mg Tablet, Delayed Release (E.C.) Take 81 mg by mouth daily. Active calcium as carbonate 1,625 mg (650 mg elemental) tablet Take 1 Tablet by mouth daily. Active Active Problems No known active problems Family History Medical History Relation Name Comments Heart Disease Brother Diabetes Father Heart Disease Father Leukemia Father Multiple myeloma Sister 1 Leukemia Sister 3 Diabetes Son 1 Leukemia Son 2 Relation Name Status Comments Brother Father Mother Sister 1 Sister 2 Sister 3 Alive Son 1 Alive Son 2 Alive Social History Tobacco Use Types Packs/Day Years Used Date Smoking Tobacco: Never Smokeless Tobacco: Never Alcohol Use Standard Drinks/Week Comments Not Currently 0 (1 standard drink = 0.6 oz pur e alcohol) Comments Unknown Sex and Gender Information Value Date Recorded Sex Assigned at Not on file Legal Sex Female 10:11 AM CDT Gender Identity Not on file Sexual Orientation Not on file Last Filed Vital Signs Vital Sign Reading Time Taken Comments Blood Pressure 149/81 05/25/2023 10:31 AM CDT Pulse 63 05/25/2023 10:22 AM CDT Temperature 36.1 C (97 F) 05/25/2023 10:22 AM CDT Respiratory Rate 10 05/25/2023 10:22 AM CDT Oxygen Saturation 99% 05/25/2023 10:22 AM CDT Inhaled Oxygen Concentration - - Weight 80.3 kg (177 lb) 05/25/2023 10:22 AM CDT Height 157.5 cm (5' 2 ) 05/25/2023 10:22 AM CDT Body Mass Index 32.37 05/25/2023 10:22 AM CDT Plan of Treatment Health Maintenance Due Date Last Done Comments DTAP/TDAP/TD VACCINES (1 - Tdap) 1970 BREAST CANCER SCREENING 1991 COLORECTAL SCREENING 1996 Colorectal Cancer Screening 1996 FIT-DNA Q 3 years 1996 FIT/FOBT Q 1 year 1996 Flex Sig/CT Colonography Q 5 years 1996 PNEUMOCOCCAL VACCINE 50+ YEARS (1 of 1 - PCV) 03/11/20 ZOSTER VACCINE (1 of 2) 2001 OSTEOPOROSIS SCREENING 2016 INFLUENZA VACCINE (#1) 2024 RSV VACCINE (60+ or ) (1 - 1-dose 75+ series) 2026 Insurance [facility] [id number] Care Teams Swat Team Member Relationship Specialty Start Date End Date Geneva Damian MD [address] [place] [address] PCP - General Family Practice 05/25/23
--- OUTSIDE RECORDS SUMMARY | 2025-02-12 09:13 | XMS_ITS | Data Portability ---
Author Organization [place] [facility], Main Office Address [address] [place] [address] Care Team Providers Care Finisher Machine Name Role Phone MELISSA PEACOCK Primary Care Provider MELISSA PEACOCK Referring Provider Assessment Encounter Date Assessment Date Assessment LastModified by Organization Details LastModified Time 07/14/2023 07/14/2023 HPI: 73-year-old female came in today for evaluation of her right shoulder pain. She has been having symptoms for about a year. The been a bit worse last 6 weeks. She does not recall any injury or trauma to start her symptoms. She has pain with the use and range of motion. She remembers getting a cortisone injection over 10 years ago in the shoulder which got rid of all of her symptoms up until recently. Patient was started on Celebrex 100 mg b.i.d.. She does have some GI intolerance to anti-inflammator ies but is tolerating the Celebrex at this point. She has noticed a little bit improvement of her symptoms. She points directly to the anterior lateral deltoid where she feels most pain. Physical exam: 73-year-old female alert pleasant. She has full range motion of the wrist fingers elbow the right arm. 2+ radial pulse. She has active elevation 150 external rotation 80 internal rotation is to T12. She has mild discomfort with range of motion. Moderate pain primary impingement testing. No AC joint tenderness. Mild tenderness over the anterior supraspinatus tendon insertion. Neck range of motion is full without discomfort. No numbness tingling the right arm. Subscap lift-off is intact. She has good strength with external rotation as well as abduction. She has no pain with strength testing. After ChloraPrep was used on the skin 20 mg Kenalog and 3 cc of 0.5% ropivacaine was injected into the right subacromial space. Patient tolerated this well. Risk infection discussed. Impression: 73-year-old female who has most likely rotator cuff tendinitis issues. Given her age I am sure she has some degree of wear to the rotator cuff tendon. I discussed with her treatment options. She is already on a good anti-inflammator y we discussed formal physical therapy to see if this will improve her symptoms but she declined. She was insistent that she wanted a cortisone injection in the shoulder get quick relief of her symptoms and I think this is reasonable. She tolerated the injection well. If she is not get satisfactory improvement of her symptoms she will call otherwise we will see her back needed. [email or web address] Not available 07/14/2023 09:25:31 Plan of Treatment Reminders Order Date Submit Date Provider Last Modified By Organization Details Last Modified Time Details Appointments None recorded. Lab None recorded. Referral None recorded. Procedures injection/a spiration joint/bursa (PROC) - in office procedure, administere d by provider 2022 023 In-Office Order, Internal Use Only DO Not Attach Compendium DO Not Attach Compendium, Do Not Delete/merge, [id number] 09:07:52 Surgeries None recorded. Imaging XR, shoulder [email or web address] [facility], [facility] [address], [place], [address], 3 19:03:03 Medication Orders Kenalog 10 mg/mL suspension for injection [address]/Pharmacy #[id number], [address] [place], [address], 3 19:03:03 ropivacaine (PF) 5 mg/mL (0.5 %) injection solution 2022 023 [email or web address]/Pharmacy #[id number], [address] [place], [address], 3 19:03:03 Patient TargetsNo targets recorded. Patient InstructionsNo instructions recorded. Reason for Referral None Reported. Results Created Date Observation Date Name Description Value Unit Range Abnormal Flag Note LastModifiedBy Organization Detail LastModifiedTime 07/14/20 XR, shoul daisy No observ ation record ed. [email or web address] [facility] [address], [place], [address], 07/14/2023 09:22:54 Result Notes None recorded. Problems Name Problem SNOMED Code Status Onset Date Resolution Date Notes Provider Name and Address Organization Details Recorded Time Pain of right shoulder joint 432941701174677 00 Active 2022 ED Grider, [facility] 08:35:44 Problem Notes None recorded. Procedures Surgical History Date Name Laterality Status Provider Name and Address Organization Details Recorded Time Hysterectomy completed ED Grider [facility] 07/14/2023 08:35:11 Imaging Results Imaging Date Name Status LastModified by Organiz ation Details LastModified Time 07/14/2023 XR, shoulder completed [email or web address] [facility] [address], [place], [address], 07/14/2023 09:22:54 Procedure Notes None recorded. Medical Equipment None Reported. Allergies No known drug allergies Medications Name Sig Start Date Stop Date Status Note LastModified by Organization Details LastModified Time losartan 50 mg tablet TAKE 1 TABLET BY MOUTH EVERY DAY active Not Available Not Available No t Available trazodone 50 mg tablet TAKE 1 TABLET BY MOUTH AT BEDTIME active Not Available Not Available No t Available sucralfate 1 gram tablet TAKE 1 TABLET BY MOUTH FOUR TIMES A DAY BEFORE MEALS active Not Available Not Available No t Available alendronate 70 mg tablet TAKE 1 TABLET BY MOUTH WEEKLY active Not Available Not Available No t Available pravastatin 10 mg tablet TAKE 1 TABLET BY MOUTH EVERY DAY active Not Available Not Available No t Available Kenalog 10 mg/mL suspension for injection in office 2022 active ND: 0003- [id number]- 20 Not Available Not Available Not Available pantoprazole 40 mg tablet,delayed release TAKE 1 TABLET BY MOUTH TWICE A DAY active Not Available Not Available No t Available celecoxib 100 mg capsule TAKE 1 CAPSULE BY MOUTH TWICE A DAY active Not Available Not Available No t Available ropivacaine (PF) 5 mg/mL (0.5 %) injection solution in office 2022 active [facility] [phone] -[phone] Not Available Not Available Not Available BinaxNOW COVID-19 Ag Self Test kit USE DIRECTED active Not Available Not Available No t Available Paxlovid 300 mg (150 mg x 2)-100 mg tablets in a dose pack TAKE 2 TABLETS (NIRMATRE LVIR) AND TAKE 1 TABLET (RITONAVI R) BY MOUTH TWICE A DAY FOR 5 DAYS active Not Available Not Available No t Available Vitals Date Recorded Body height Body mass index (BMI) Body weight Provider Name and Address Organization Details Last Updated DateTime 07/14/2023 154.94 cm 34.8 kg/m2 [address] lucrecia ED Grider [facility] [employer] 07/14/2023 08:40:38 Social History Question Answer Notes LastModified by Organizat ion Details LastModified Time Tobacco Smoking Status Never Smoker ED Grider null [facility] [employer] [facility] 07/14/2023 08:35:02 What Is Your Level Of Alcohol Consumption? None [email or web address] Information not available 07/14/2023 Sex: Unknown Functional Status None recorded. Mental Status None recorded. Family History Relationship Description Onset Age of this Age Resolved Age Notes LastModified by Organization Details LastModified Time Father Hypertensive disorder [email or web address] Not available 2022 08:34:44 Father Diabetes mellitus [email or web address] Not available 2022 08:34:56 Mother Hypertensive disorder Not available 2022 08:34:44 Medical History Condition Response ARTHRITIS Y Gynecological HistoryNo gynecological history recorded. Obstetrics History GPAL:G 0 P 0 0 0 0 Past Encounters Encounter ID Performer Location Encounter Start Date Encounter Closed Date Diagnosis/Indication Diagnosis SNOMED-CT Code Diagnosis ICD10 Code Diagnosis Note [id number] BETO Coughlin [facility] [place] [address] [place] [address] 07/14/2023 08:26:39 07/14/2023 09:44:10 Pain of right shoulder joint 8056132477 [id number] M25.511 Health Concerns Section Related Observation LastModified by Organization Detai ls LastModified Time None Recorded Concern Status LastModified by Organization Details LastModified Time None Recorded Advance Directives Directive None Recorded Payers Encounter Date Sequence Insurance Name Policy Number Policy Forbes Covered Member ID Forbes Member ID Guarantor Name 07/14/2023 1 [facility] (MEDICARE REPLACEMENT/A DVANTAGE - PPO) [id number] Gopi Bush [id number] Gopi Bush OBGyn Episode No OBEpisode recorded.
[2025-02-12 09:15] LABS: Alanine Aminotransferase 11 U/L (14-59); Albumin Level 3.5 g/dL (3.4-5.0); Alkaline Phosphatase 61 U/L (46-116); Anion Gap 8 mmol/L (4-12); Aspartate Amino Transferase < 10 U/L (15-37); Bilirubin,Total 0.2 mg/dL (0.00-1.00); Blood Urea Nitrogen 20 mg/dL (7-18); Calcium 8.7 mg/dL (8.5-10.1); Carbon Dioxide 29 mmol/L (21-32); Chloride 109 mmol/L (98-108); Cholesterol 175 mg/dL (0-200); Estimated Glomerular Filt Rate > 60; Glucose 121 mg/dL (70-99); HDL Direct 49 mg/dL (40-60); LDL Cholesterol Calculated 106 mg/dL (<130); Osmolality Calculated 305 mOsm/kg (285-295); Potassium 4.1 mmol/L (3.5-5.1); Sodium 146 mmol/L (136-145); Total Protein 6.4 g/dL (6.4-8.2); Triglycerides 101 mg/dL (0-150)
[2025-02-12 09:52] LABS: Thyroid Stimulating Hormone Reflex 1.83 u/IU/mL (0.36-3.74)
== END 2025-02-12 08:35 | disposition home or self-care (01) ==
LOC: CHSLAB 08:35
PROVIDERS: PCP Family Medicine; Visit Provider Family Medicine
DX: E78.2 Mixed hyperlipidemia (principal); E03.9 Hypothyroidism, unspecified; E11.9 Type 2 diabetes mellitus without complications; R53.83 Other fatigue
CPT/HCPCS: 36415; 80053; 80061; 83036; 84443; 85025

== ENCOUNTER 2025-04-03 12:49 | Outpatient (CLI) | payer MEDICARE, SELFPAY ==
--- NOTE | ~2025-04-03 | MM_ITS ---
EXAMINATION: MM screening mary BI w carlyle HISTORY: Screening TECHNIQUE: Craniocaudal and mediolateral oblique 3-D tomosynthesis images were obtained and synthetic 2-D images were generated. CAD analysis was submitted and interpreted. COMPARISON: Comparison to multiple prior studies sequentially, with oldest reviewed study dated 07/04. BREAST PARENCHYMAL COMPOSITION: Not dense: There are scattered areas of fibroglandular density. FINDINGS: There is no evidence of suspicious mass, calcification, or architectural distortion to sugg est malignancy in either breast. There has been no suspicious interval change. IMPRESSION: 1. No mammographic evidence of malignancy. 2. Recommend routine screening mammography in one year. BI-RADS Category 1: Negative Reviewed, dictated and finalized at location B.
--- NOTE | ~2025-04-03 | DEXA_ITS ---
Bone Density Report Name: YUNIEL VALVERDE Age: 75 Sex: Female Ethnicity: White Date of : 1950 Indication: osteopenia; parental hip fracture; hysterectomy; rheumatoid arthritis; Referring Provider: Geneva Damian Study: Bone densitometry was performed. Exam Date: April 03, 2025 Accession number: [id number] Bone Density: Region BMD T-score Z-score Classification AP Spine(L1-L4) 0.962 -0.8 1.6 Normal Femoral Neck (Left) 0.593 -2.3 -0.3 Osteopenia Total Hip (Left) 0.852 -0.7 1.0 Normal Femoral Neck (Right) 0.574 -2.5 -0.5 Osteoporosis Total Hip (Right) 0.816 -1.0 0.7 Normal Femoral Neck Mean 0.583 -2.4 -0.4 Osteopenia Total Hip Mean 0.834 -0.9 0.8 Normal World Health Organization criteria for BMD impression classify patients as: Normal (T-score at or above -1.0), Osteopenia (T-score between -1.0 and -2.5), or Osteoporosis (T-score at or below -2.5). 10-year Fracture Risk: FRAX not reported because: Some T-score for Spine Total or Hip Total or Femoral Neck at or below -2.5 Previous Exams: Region Exam Age BMD T-score BMD Change BMD Change Date g/cm2 vs Baseline vs Previous AP Spine (L1-L4) 04/03/2025 75 0.962 -0.8 -0.010 (-1.1%) -0.010 (-1.1%) 07/04/2020 70 0.972 -0.7 Total Hip(Left) 04/03/2025 75 0.852 -0.7 0.025 (3.1%)# 0.147 (20.9%)# 01/06/2023 72 0.704 -1.9 -0.122 (-14.8% -0.122 (-14.8% 07/04/2020 70 0.826 -0.9 Total Hip(Right) 04/03/2025 75 0.816 -1.0 0.078 (10.6%)# 0.131 (19.1%)# 01/06/2023 72 0.685 -2.1 -0.053 (-7.2%) -0.053 (-7.2%) 07/04/2020 70 0.738 -1.7 *Denotes significance at 95% confidence level, LSC for AP Spine = 0.022 g/cm2, LSC for Total Hip = 0.027 g/cm2 # Denotes dissimilar scan types or analysis methods Clinical Information Provided by Patient: Parent has had a hip fracture Has rheumatoid arthritis Has used the following medications: Prolia (i.e. denosumab) Has the following medical conditions: Hysterectomy Patient maximum height was 62 Menopause Age: 25 No regular weight bearing exercise Drinks caffeinated beverages Onset of menses at age 16 Number of children 3 Impression: The patient has osteoporosis, based on the Right Femoral Neck T-score. The patient has risk factors, including: parental hip fracture. No significant bone loss was observed. Discussion: INCREASED RISK OF FRACTURE. BONE DENSITY IS UNDESIRABLY LOW AT ONE OR MORE SKELETAL SITES, CONSISTENT WITH POSTMENOPAUSAL OSTEOPOROSIS. This patient's lowest T-score meets the World Health Organization's (WHO) criteria for osteoporosis at one or more sites (T-score -2.5 or below). In untreated patients, the risk of osteoporotic fracture increases approximately two-fold for each 1.0 SD decrease in T-score. Low bone density is not the only risk factor for fracture; also consider factors such as patient's age, frailty or poor health, risk of falling, risk of injury, previous osteoporotic fracture, family history of osteoporosis, cigarette smoking, low body weight, etc. Not everyone with low bone mineral density has osteoporosis; osteomalacia and other metabolic bone disorders should also be considered. Patients who have osteoporosis should be evaluated for specific diseases and conditions (secondary causes) that may cause or contribute to bone loss. The [place] Association of [employer] Endocrinologists (AACE) and National Osteoporosis Foundation (NOF) recommend pharmacologic intervention for all postmenopausal women whose T-score is in this range. The patient should follow a healthful lifestyle (good nutrition with adequate calcium and vitamin D, and appropriate weight-bearing exercise). Follow-Up: Consider a repeat BMD and Vertebral Fracture Assessment (VFA) exam in 2 years or sooner if medically necessary, to reassess this patient's status. Reported by: ALVARADO on 04/03/2025 1:24:00 PM. Reviewed, dictated and finalized at location A.
--- OUTSIDE RECORDS SUMMARY | 2025-04-03 13:41 | XMS_ITS | Data Portability ---
Author Organization [place] [facility], Main Office Address [address] [place] [address] Care Team Providers Care Pile Driving Setter Name Role Phone MELISSA PEACOCK Primary Care Provider [phone] MELISSA PEACOCK Referring Provider [phone] Assessment Encounter Date Assessment Date Assessment LastModified [...] procedure, administere d by provider 2022 023 [email or web address] In-Office Order, Internal Use Only DO Not Attach Compendium DO Not Attach Compendium, Do Not Delete/merge, [id number] 09:07:52 Surgeries None recorded. Imaging XR, shoulder 2022 023 [email or web address] [facility], [facility] [address], [place], [address], 3 19:03:03 Medication Orders Kenalog 10 mg/mL suspension for injection [address]/Pharmacy #[id number], [address] [place], [address], 3 19:03:03 ropivacaine (PF) 5 mg/mL (0.5 %) injection solution 2022 023 [facility]/Pharmacy #[id number], [address] [place], [address], 3 19:03:03 Patient TargetsNo targets recorded. Patient InstructionsNo instructions recorded. Reason for Referral None Reported. Results Created Date Observation Date Name Description Value Unit Range Abnormal Flag Note LastModifiedBy Organization Detail LastModifiedTime 07/14/20 23 XR, shoul daisy No observ ation record ed. [email or web address] [facility] [address], [place], [address], 07/14/2023 09:22:54 Result Notes None recorded. Problems Name Problem SNOMED Code Status Onset Date Resolution Date Notes Provider Name and Address Organization Details Recorded Time Pain of right shoulder joint 367299034620110 00 Active 2022 ED [facility] [employer] 3 08:35:44 Problem Notes None recorded. Procedures Surgical History Date Name Laterality Status Provider Name and Address Organization Details Recorded Time Hysterectomy completed ED [facility] [employer] 07/14/2023 08:35:11 Imaging Results None recorded. Procedure Notes None recorded. Medical Equipment None [...] suspension for injection in office 2022 active [facility]: 0003- 0494- 20 Not Available Not Available Not Available pantoprazole 40 mg tablet,delayed release TAKE 1 TABLET BY MOUTH TWICE A DAY active Not Available Not Available No t Available celecoxib 100 mg capsule TAKE 1 CAPSULE BY MOUTH TWICE A DAY active Not Available Not Available No t Available ropivacaine (PF) 5 mg/mL (0.5 %) injection solution in office 2022 active [facility] 49049 -064- 01 Not Available Not Available Not [...] Updated DateTime 07/14/2023 154.94 cm 34.8 kg/m2 58070 g ED Gr[facility] [employer] [facility] 07/14/2023 08:40:38 Social History None recorded. Functional Status Question Answer Note LastModified by Organization D etails LastModified Time What is your level of alcohol consumption? None [email or web address] Information not available 07/14/2023 Mental Status None recorded. Family History Relationship Description Onset Age of this Age Resolved Age Notes LastModified by Organization Details LastModified Time Father Hypertensive disorder [email or web address] Not available 2022 08:34:44 Father Diabetes mellitus [email or web address] Not available 2022 08:34:56 Mother Hypertensive disorder [email or web address] Not available 2022 08:34:44 Medical History Condition Response ARTHRITIS Y Gynecological HistoryNo gynecological history recorded. Obstetrics History GPAL:G 0 P 0 0 0 0 Past Encounters Encounter ID Performer Location Encounter Start Date Encounter Closed Date Diagnosis/Indication Diagnosis SNOMED-CT Code Diagnosis ICD10 Code Diagnosis Note [id number] Andriy Thornton MD [facility] [address] [place] [address] 07/14/2023 08:26:39 07/14/2023 09:44:10 Pain of right shoulder joint [id number] 1644383 M25.511 Health Concerns Section Related Observation LastModified by Organization Detai ls LastModified Time None Recorded Concern Status LastModified by Organization Details LastModified Time None Recorded Advance Directives Directive None Recorded Payers Encounter Date Sequence Insurance Name Policy Number Policy Forbes Covered Member ID Forbes Member ID Guarantor Name 07/14/[address] [facility] (MEDICARE REPLACEMENT/A DVANTAGE - PPO) [id number] Gopi Bush [id number] Gopi Bush OBGyn Episode No OBEpisode recorded.
--- OUTSIDE RECORDS SUMMARY | 2025-04-03 13:41 | XMS_ITS | Clinical Summary ---
Author Organization [facility] Renee Thapa Address [address] [place] [address] Care Team Providers Care Personal Care Aid Name Role Phone Geneva Damian MD Primary Care Provider [phone] Allergies No known active allergies Medications pantoprazole [...] 10:22 AM CDT Height 157.5 cm (5' 2) 05/25/2023 10:22 AM CDT Body Mass Index [...] (1 - 1-dose 75+ series) 2026 Insurance [facility] [id number] Care Teams Personal Care Aid Relationship Specialty Start Date End Date Geneva Damian MD [address] [place] [address] PCP - General Family Practice 05/25/23
== END 2025-04-03 12:50 | disposition home or self-care (01) ==
LOC: CHSIMG 12:51
PROVIDERS: PCP Family Medicine; Visit Provider Family Medicine
DX: Z12.31 Encounter for screening mammogram for malignant neoplasm of breast (principal); Z78.0 Asymptomatic menopausal state; M85.89 Other specified disorders of bone density and structure, multiple sites; M81.0 Age-related osteoporosis without current pathological fracture
CPT/HCPCS: 77063; 77067; 77080